=== PATIENT | male | born 1990 | race African-American/Black ===

== ENCOUNTER 2016-09-06 17:23 | Emergency (ER) | payer OTHER ==
[~2016-09-06] VITALS: Ht 182.9 cm; Wt 81.6 kg
[~2016-09-06 17:23] MED LIST: ALBUTEROL0.09 MG/A1 INH; AUGMENTIN 875 M1 TAB PO; CIPRO 500MG TA500 MG PO; FLAG500 PO; HUMALOG 100U100 U/ML; LANTUS SOLOS100 U/ML SC; MEDROL DOSEPAK1 PAC PO; MOTRIN800 MG PO; NOVOLOG100 U/ML SC; PREDNISONE 20MG20 MG PO
--- NOTE | 2016-09-06 17:54 | ED GENERAL ADULT ---
History of Present Illness General Chief Complaint: General Adult Stated Complaint: GENERAL WEAKNESS Source: patient Exam Limitations: no limitations Vital Signs & Intake/Output Vital Signs & Intake/Output ED Intake and Output 09/07 0000 09/06 1199 Intake Total 2000 Output Total Balance 2000 Intake, IV 2000 Patient 180 lb Weight Allergies Coded Allergies: NO KNOWN ALLERGIES (09/06/16) Reconcile Medications Insulin Aspart (Novolog) 100 UNIT/ML VIAL DM (Reported) Insulin Glargine, Recombinan (Lantus Solostar) 100 U/ML KARL 32 UNIT SC QAM DIABETES . Methocarbamol (Robaxin-750) 750 MG TABLET 1 TAB PO TID PRN muscle pain Tramadol HCl 50 MG TABLET 1-2 TAB PO Q6 PRN pain Triage Note: TRIAGE: PT TO ER C/C GENERAL WEAKNESS, BODY ACHES, BILATERAL FLANK PAIN (STATES I'M CONCERNED ABOUT MY KIDNEYS"), LEG PAIN. HAS HAD COLD OR SINUS INFECTION SINCE WEDNESDAY. PMHX IDDM, STATES BLOOD SUGARS HAVE BEEN OK. ACCUCHECK 207 AT TRIAGE. Triage Nurses Notes Reviewed? yes HPI: Patient is a 26-year-old male presents complaining of back pain and bilateral leg pain. Patient concerned that he is having kidney problems due to his diabetes. Back pain and leg pain for approximately 2-3 days. Pain is an aching sensation, soreness. Patient was working out at the gym but denies any particular trauma. Patient has not taken any medication for his symptoms. Patient reports that and Wednesday he had a cold and thought initially that the aching may be secondary to this. Patient has been checking his blood sugars reports that they have not been higher than 250. Patient denies dysuria, frequency, hematuria, nausea, vomiting, diarrhea, abdominal pain (EULALIA BOLANOS) Past History Travel History Traveled to [place] past 21 day No Medical History Any Pertinent Medical History? 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 No (EULALIA BOLANOS) Review of Systems Review of Systems Constitutional: Reports: malaise. Denies: chills, fever. EENTM: Reports: nasal congestion (improved). Respiratory: Denies: cough, short of breath. Cardiovascular: Denies: chest pain. GI: Denies: abdominal pain, nausea, vomiting. Genitourinary: Denies: dysuria, frequency, hematuria. Musculoskeletal: Reports: back pain, muscle pain. Skin: Reports: no symptoms. Neurological/Psychological: Reports: no symptoms. Hematologic/Endocrine: Reports: other (hx type 2 diabetes). Immunologic/Allergic: Reports: no symptoms. (EULALIA BOLANOS) Physical Exam Physical Exam General Appearance: well developed/nourished, alert, awake Head: atraumatic, normal appearance Eyes: Bilateral: normal appearance, PERRL, EOMI. Ears, Nose, Throat: normal pharynx, normal ENT inspection, hearing grossly normal Neck: normal inspection, supple, full range of motion Respiratory: normal breath sounds, chest non-tender, no respiratory distress, lungs clear Cardiovascular: regular rate/rhythm Gastrointestinal: normal bowel sounds, soft, non-tender Back: normal inspection, normal range of motion, no vertebral tenderness, mild right cva tenderness Extremities: normal inspection, normal capillary refill, normal range of motion, no edema Neurologic/Psych: no motor/sensory deficits, awake, alert, oriented x 3, normal gait, normal mood/affect Skin: intact, normal color, warm/dry Lymphatic: no anterior cervical bryson Core Measures ACS in differential dx? No CVA/TIA Diagnosis: No Severe Sepsis Present: No Septic Shock Present: No (EULALIA BOLANOS) Progress Differential Diagnoses I considered the following diagnoses in my evaluation of the patient: rhabdo, uti, pyelo, muscle strain Plan of Care: Orders Procedure Date/time Status URINALYSIS 09/06 1756 Complete COMPREHENSIVE METABOLIC PANEL 09/06 1756 Complete CREATINE PHOSPHOKINASE 09/06 1756 Complete CBC WITHOUT DIFFERENTIAL 09/06 1756 Complete Laboratory Tests 09/06/16 1805: Anion Gap 10, Estimated GFR > 60, BUN/Creatinine Ratio 14.0, Glucose 252 H, Calcium 9.6, Total Bilirubin 0.5, AST 34, ALT 58, Alkaline Phosphatase 91, Creatine Kinase 1014 H, Total Protein 7.4, Albumin 4.3, Globulin 3.1, Albumin/ Globulin Ratio 1.4, CBC w Diff NO MAN DIFF REQ, RBC 4.77, MCV 86.2, MCH 29.6, RDW 14.7 H, MPV 7.6, Gran % 34.7 L, Lymphocytes % 48.7, Monocytes % 13.2 H, Eosinophils % 2.6, Basophils % 0.8, Absolute Granulocytes 2.2, Absolute Lymphocytes 3.1, Absolute Monocytes 0.8 H, Absolute Eosinophils 0.2, Absolute Basophils 0, PUBS MCHC 34.3, Urine Color YEL, Urine Clarity CLEAR, Urine pH 7.0, Ur Specific [place] 1.020, Urine Protein 30 H, Urine Ketones TRACE H, Urine Nitrite NEG, Urine Bilirubin NEG, Urine Urobilinogen 0.2, Ur Leukocyte Esterase NEG, Ur Microscopic SEDIMENT EXAMINED, Urine RBC RARE, Urine WBC RARE, Ur Epithelial Cells FEW, Urine Mucus FEW, Urine Hemoglobin NEG, Urine Glucose >= 1000 H Results of labs discussed with patient. 2L NS bolus administered. Discussed importance of close outpatient follow up and drinking copious amounts of fluids. Patient provided with Rx slip for repeat BMP and CK, and instructed to have repeat labs in 2 days. Appears stable for discharge with close outpatient follow up. Discussed with Dr. Santacruz. (EULALIA BOLANOS) Initial ED EKG: none (EULALIA BOLANOS) Departure Departure Disposition: HOME OR SELF CARE Condition: Stable Clinical Impression Primary Impression: Rhabdomyolysis Qualifiers: Rhabdomyolysis type: non-traumatic Qualified Code: M62.82 - Rhabdomyolysis Referrals: STEFANY NORMAN APRN Additional Instructions: Follow up with your primary doctor this week for further evaluation, call wednesday for appointment. It is very important that you drink a lot of fluids over the next 48 hours. You should have repeat blood work in 2 days, bring the prescription script with you to the outpatient lab to obtain this blood test. Return to the ER if your urine is turning darker, increasing pain, or worsening of symptoms. Departure Forms: Customer Survey General Discharge Information Prescriptions: Current Visit Scripts Tramadol HCl 1-2 TAB PO Q6 PRN pain #15 TAB Methocarbamol (Robaxin-750) 1 TAB PO TID PRN muscle pain #15 TAB (HEILBRUNN PA,EULALIA) PA/HEAD BAGGAGE PORTER Co-Sign Statement Statement: ED Attending supervision documentation- [] I saw and evaluated the patient. I have also reviewed all the pertinent lab results and diagnostic results. I agree with the findings and the plan of care as documented in the PA's/HEAD BAGGAGE PORTER's documentation. [X] I have reviewed the ED Record and agree with the PA's/HEAD BAGGAGE PORTER's documentation. [] Additions or exceptions (if any) to the PAs/HEAD BAGGAGE PORTER's note and plan are summarized below: [] (JUAREZ CHRISTENSEN,MILAN Soria) Critical Care Note Critical Care Note Critical Care Time: non-applicable (EULALIA BOLANOS)
[2016-09-06 18:18] LABS: ABSOLUTE BASOPHIL COUNT 0 /CUMM (0.0-0.2); ABSOLUTE EOSINOPHIL COUNT 0.2 /CUMM (0.0-0.7); ABSOLUTE GRANULOCYTE CT 2.2 /CUMM (1.4-6.5); ABSOLUTE LYMPH COUNT 3.1 /CUMM (1.2-3.4); ABSOLUTE MONOCYTE COUNT 0.8 /CUMM (0.10-0.60); BASOPHIL % 0.8 % (0.0-2.0); EOSINOPHIL % 2.6 % (0-5); GRANULOCYTE % 34.7 % (42.2-75.2); HEMATOCRIT 41.1 % (42-52); MEAN CORPUSCULAR HGB 29.6 PG (27.0-31.0); MEAN CORPUSCULAR HGB CONC 34.3 G/DL (33.0-37.0); MEAN CORPUSCULAR VOLUME 86.2 FL (80.0-94.0); MEAN PLATELET VOLUME 7.6 FL (7.4-10.4); PLATELET COUNT 276 /CUMM (130-400); RBC DISTRIBUTION WIDTH 14.7 % (11.5-14.5); RED BLOOD CELL CT 4.77 /CUMM (4.70-6.10); WHITE BLOOD CELL COUNT 6.4 /CUMM (4.8-10.8)
[2016-09-06] MEDS ORDERED: NOVOLOG100 UNIT/2 SC (18:22)
[2016-09-06] MEDS ORDERED: TRAMADOL HCL50 M1 PO (19:47)
[2016-09-06 20:21] VITALS: BP 126/84
[2016-09-06] MEDS ORDERED: ROBAXIN-750750 M1 PO (20:42)
== END 2016-09-06 20:44 ==
LOC: ERH 17:23
PROVIDERS: Physician Assistant
DX: M62.82 Rhabdomyolysis (principal)
CPT/HCPCS: 81001; 96360; 96361

== ENCOUNTER 2016-10-02 22:21 | Emergency (ER) | payer OTHER ==
[~2016-10-02] VITALS: Ht 182.9 cm; Wt 81.6 kg
[~2016-10-02 22:21] MED LIST changes: +NOVOLOG100 UNIT/2 SC; +ROBAXIN-750750 M1 PO; +TRAMADOL HCL50 M1 PO
[2016-10-02 22:25] VITALS: BP 116/81
--- NOTE | 2016-10-02 22:41 | ED NECK/BACK PAIN COMPLAINT ---
History of Present Illness General Chief Complaint: Low Back Pain/Injury Stated Complaint: " BACK PAIN S/P SHOVELING SNOW" Source: patient Exam Limitations: no limitations Vital Signs & Intake/Output Vital Signs & Intake/Output Vital Signs Date Time Temp Pulse Resp B/P Pulse O2 O2 Flow FiO2 Ox Delivery Rate 10/02 2318 Room Air 10/02 2225 97.0 85 18 116/81 98 Room Air ED Intake and Output 10/03 0000 10/02 1200 Intake Total Output Total Balance Patient 180 lb Weight Allergies Coded Allergies: NO KNOWN ALLERGIES (09/06/16) Reconcile Medications Cyclobenzaprine HCl 10 MG TABLET 1 TAB PO QPM PRN MUSCLE SPASMS Insulin Aspart (Novolog) 100 UNIT/ML VIAL DM (Reported) Insulin Glargine, Recombinan (Lantus Solostar) 100 U/ML KARL 32 UNIT SC QAM DIABETES . Meloxicam (Mobic) 15 MG TABLET 1 TAB PO DAILY PRN PAIN Methocarbamol (Robaxin-750) 750 MG TABLET 1 TAB PO TID PRN muscle pain Tramadol HCl 50 MG TABLET 1-2 TAB PO Q6 PRN pain Triage Note: PT TO TRIAGE WITH C/O LOWER BACK PAIN 04/01 RADIATING TO RLE SINCE THIS MORNING. PT WAS SHOVELING SNOW YESTERDAY. VSS. Triage Nurses Notes Reviewed? yes Onset: Gradual Duration: day(s): (1) Timing: recent history Quality/Severity: moderate Location: lumbar spine, paraspinous muscles Radiation: none Context: shoveling Method of Injury: shoveling Loss of Consciousness: no loss of consciousness HPI: Patient is a 26-year-old male presenting to the emergency department complaining of low back pain after extensive shoveling over the past 24 hours. Denies any falls. Pain is achy throbbing. It is worse when he woke up this time. Denies any urinary frequency urgency or dysuria. Denies taking anything to help with pain. No abdominal pain. Denies any weakness. Recent history of rhabdomyolysis approximately one month ago. He never followed up. Denies any dark-colored urine. (ELAINE MARRERO) Past History Travel History Traveled to [place] past 21 day No Medical History Any Pertinent Medical History? see below for history Neurological: NONE EENT: NONE Cardiovascular: NONE Respiratory: NONE Gastrointestinal: NONE Hepatic: NONE Renal: NONE Musculoskeletal: NONE Psychiatric: NONE Endocrine: IDDM Blood Disorders: NONE Cancer(s): NONE ORDER ENTRY/Reproductive: NONE History of MRSA: No History of VRE: No History of CDIFF: No Surgical History Surgical History: ACL surgery Psychosocial History Who do you live with Grandmother What is your primary language Ukrainian Tobacco Use: Current Daily Use Daily Tobacco Use Amount/Type: => 5 Cigarettes daily Family History Hx Contributory? No (ELAINE MARRERO) Review of Systems Review of Systems Constitutional: Reports: no symptoms. Comments Review of systems: See HPI, All other systems negative. Constitutional, no chills fever or weight loss HEENT: No visual changes no sore throat no congestion Cardiovascular: No chest pain Skin, no jaundice no rashes Respiratory: No dyspnea cough sputum or hemoptysis GI: No nausea no vomiting : No dysuria No hematuria Muscle skeletal: no neck pain, Neurologic: No numbness no confusion Psych: No stress anxiety or depression,. Heme/endocrine: No bruising no bleeding no polyuria or polydipsia Immunology: No splenectomy or history of AIDS (ELAINE MARRERO) Physical Exam Physical Exam General Appearance: well developed/nourished, no apparent distress, alert, awake , comfortable Neck: normal inspection, supple, full range of motion Comments: Well-developed well-nourished person in no acute distress HEENT: Pupils equally round and reactive to light and accommodation. Nose is atraumatic. Neck: Supple, no lymphadenopathy, normal range of motion without pain or tenderness aminal C-spine tenderness. Back: Tender to palpation in the lumbar paraspinal region. No CVA tenderness. Near full range of motion somewhat limited secondary to pain. Negative modified straight leg raise bilaterally. Cardiovascular: Regular rate and rhythms no murmurs rubs or gallops, normal JVP Respiratory: Chest nontender. No respiratory distress.breath sounds clear to auscultation bilaterally Abdomen: Soft, nontender nondistended, no appreciable organomegaly. Normal bowel sounds. No ascites Extremity: No edema Neuro: Alert oriented x3, motor sensory normal, patellar reflexes are 2+ bilaterally. Skin: No appreciable rash on exposed skin, skin is warm and dry. Psych: Mood and affect is normal, memory and judgment is normal. (ELAINE MARRERO) Progress Differential Diagnosis: muscle strain, cauda equina, herniated disc, rhabdomyolysis Comments: 10/02/2016 11:49:10 PM patient informed of lab work results. Blood glucose is 515. IV fluids initiated. Patient also given IV insulin. He reports that he did not take insulin after eating earlier today. Patient will be discharged once blood glucose level was down around 250. CK is less than half of what it was on previous visit. He'll follow with PCP educated on increasing fluids. Avoid strenuous exercise. (JAMES ANNE,ELAINE) Plan of Care: Orders Procedure Date/time Status Add-on Test (ER Only) 10/02 2342 Active ACETONE 10/02 2257 Complete URINALYSIS 10/02 2240 Complete COMPREHENSIVE METABOLIC PANEL 10/02 2240 Complete CREATINE PHOSPHOKINASE 10/02 2240 Complete Laboratory Tests 10/02/162257: Anion Gap 6, Estimated GFR > 60, BUN/Creatinine Ratio 15.8, Glucose 513 *H, Calcium 9.2, Total Bilirubin 0.6, AST 32, ALT 47, Alkaline Phosphatase 82, Creatine Kinase 476 H, Total Protein 6.7, Albumin 3.9, Globulin 2.8, Albumin/ Globulin Ratio 1.4, Acetone Level NEGATIVE 10/02/162249: Urine Color YEL, Urine Clarity CLEAR, Urine pH 6.0, Ur Specific [place] 1.015, Urine Protein NEG, Urine Ketones TRACE H, Urine Nitrite NEG, Urine Bilirubin NEG, Urine Urobilinogen 0.2, Ur Leukocyte Esterase NEG, Ur Microscopic EXAM NOT REQUIRED, Urine Hemoglobin NEG, Urine Glucose >=1000 H Departure Departure Disposition: HOME OR SELF CARE Condition: Stable Clinical Impression Primary Impression: Hyperglycemia Secondary Impressions: Back pain Qualifiers: Back pain location: low back pain Chronicity: unspecified Back pain laterality: bilateral Sciatica presence: without sciatica Qualified Code: M54.5 - Low back pain Referrals: PATIENT HAS NO PRIMARY CARE DR (PCP/Family) Additional Instructions: Follow-up with your primary care physician call to make appointment. Increase fluids. Make sure he take your medications as prescribed. Check blood glucose level daily. Take Flexeril as prescribed to help muscle spasms, take Mobic as prescribed to help with pain and inflammation. Return for worsening symptoms or concerns. No heavy lifting until symptoms resolve. Departure Forms: Customer Survey General Discharge Information Prescriptions: Current Visit Scripts Meloxicam (Mobic) 1 TAB PO DAILY PRN PAIN #15 TAB Cyclobenzaprine HCl 1 TAB PO QPM PRN MUSCLE SPASMS #10 TAB (ELAINE MARRERO) PA/SHOT HOLE DRILLER Co-Sign Statement Statement: ED Attending supervision documentation- [x] I saw and evaluated the patient. I have also reviewed all the pertinent lab results and diagnostic results. I agree with the findings and the plan of care as documented in the PA's/SHOT HOLE DRILLER's documentation. Patient well appearing at discharge. Glucose in the mid 100s. Patient with benign exam. [] I have reviewed the ED Record and agree with the PA's/SHOT HOLE DRILLER's documentation. [] Additions or exceptions (if any) to the PAs/SHOT HOLE DRILLER's note and plan are summarized below: [] (ROLAN CHRISTENSEN,ROSE Maki)
[2016-10-03] MEDS ORDERED: CYCLOBENZAPRINE10 M1 PO (00:13)
[2016-10-03] MEDS ORDERED: MOBIC15 M1 PO (00:13)
== END 2016-10-03 01:06 ==
LOC: ERH 22:21
DX: E10.65 Type 1 diabetes mellitus with hyperglycemia (principal); M54.5 Low back pain
CPT/HCPCS: 81003; 96361; 96374; 96375; J1815; J1885

== ENCOUNTER 2016-10-07 09:44 | Emergency (ER) | payer OTHER ==
[~2016-10-07] VITALS: Ht 182.9 cm; Wt 81.6 kg
[~2016-10-07 09:44] MED LIST changes: +CYCLOBENZAPRINE10 M1 PO; +MOBIC15 M1 PO
--- NOTE | 2016-10-07 09:59 | ED PSYCHIATRIC COMPLAINT ---
History of Present Illness General Chief Complaint: Psychiatric Related Complaint Stated Complaint: ON POLICE PAPER, SI COMMENTS LAST PM Source: patient, police Exam Limitations: no limitations Vital Signs & Intake/Output Vital Signs & Intake/Output Vital Signs Date Time Temp Pulse Resp B/P Pulse O2 O2 Flow FiO2 Ox Delivery Rate 10/08 1151 97.8 92 16 124/69 99 Room Air 10/07 2228 97.6 102 18 117/63 96 Room Air 10/07 2008 96.7 78 20 111/68 97 Room Air ED Intake and Output 10/08 0000 10/07 1200 Intake Total Output Total 200 Balance -200 Output, Urine 200 Patient 180 lb Weight Allergies Coded Allergies: NO KNOWN ALLERGIES (09/06/16) Reconcile Medications Insulin Aspart (Novolog) 100 UNIT/ML VIAL DM (Reported) Insulin Glargine,Hum.rec.anlog (Lantus Solostar) 100 UNIT/ML (3 ML) INSULN.PEN 32 UNIT SC DAILY DIABETES (Reported) Triage Note: PT BIBA FRON HOME. EMS WAS CALLED TO HOUSE THIS AM FOR LOW BLOOD SUGAR LEVEL. ON ARRIVAL PTS SUGAR WAS 46, PT WAS A&O X4 STATING HIS SUGAR IS ALWAYS LOW IN THE AM AND HE JUST NEEDS TO EAT FOOD, PER EMS. EMD GOT A REFUSAL AND LEFT. EMS WAS CALLED SECOND TIME TO THE HOUSE BY POLICE. PER POLICE PAPER "CUT HIS RIGHT ARM, TOLD GIRLFRIEND HE WANTS TO HILL HIMSELF". PT DENIES SI/HI AT THIS TIME. DENIES ALCOHOL OR DRUG USE. BLOOD SUGAR 86 AT THIS TIME. SECUIRTY AT BEDSIDE FOR WANDING. PT REFUISNG TO CHANGE CLOTHES. DR MÉNDEZ TO SPEAK TO PT. Triage Nurses Notes Reviewed? yes Onset: Abrupt Duration: better Timing: single episode today Severity: severe Severity Numbers: 10 HPI: Patient is a 26-year-old male with a past medical history of type 1 diabetes DKA who was brought in by police paper for concerns of wanting to harm himself. It is noted to me by nursing staff police and EMS that patient woke up today and which is he lives with his girlfriend and noted to have low blood sugar in which EMS was called and arrived on scene noted to be blood sugar to be in the 40s patient was alert and oriented and refused services patient did eat a cinnamon roll afterwards however police and EMS were called again to patient's residency for concerns of a verbal argument that him and his girlfriend got into an which police papers indicate that patient told his girlfriend that he wants to kill himself and he cut his right arm. Patient was pleased papered in the emergency room. Patient states that he accidentally cut his right arm while packing his bags to a medical bed railing and states that he only said "I don't want to be here anymore" which he stated did not mean he wanted to harm himself. Patient states that he drinks alcohol on occasion however nothing recently and denies any illicit drug use. Denies any fever chills abdominal pain is otherwise without complaints. Tetanus status is unknown. It is noted on arrival the patient's blood sugar was in the 80s (DONI RIVAS) Past History Travel History Traveled to [place] past 21 day No Medical History Any Pertinent Medical History? see below for history Neurological: NONE EENT: NONE Cardiovascular: NONE Respiratory: NONE Gastrointestinal: NONE Hepatic: NONE Renal: NONE Musculoskeletal: NONE Psychiatric: NONE Endocrine: IDDM, DKA Blood Disorders: NONE Cancer(s): NONE CONDEMNATION ENGINEER/Reproductive: NONE History of MRSA: No History of VRE: No History of CDIFF: No Surgical History Surgical History: ACL surgery Psychosocial History Who do you live with Grandmother What is your primary language Wolof Tobacco Use: Current Daily Use Daily Tobacco Use Amount/Type: => 5 Cigarettes daily ETOH Use: denies use Illicit Drug Use: denies illicit drug use Family History Hx Contributory? No (DONI RIVAS) Review of Systems Review of Systems Constitutional: Reports: no symptoms. EENTM: Reports: no symptoms. Respiratory: Reports: no symptoms. Cardiovascular: Reports: no symptoms. GI: Reports: no symptoms. Genitourinary: Reports: no symptoms. Musculoskeletal: Reports: no symptoms. Skin: Reports: see HPI. Neurological/Psychological: Reports: see HPI. Hematologic/Endocrine: Reports: no symptoms. Immunologic/Allergic: Reports: no symptoms. All Other Systems: Reviewed and Negative (DONI RIVAS) Physical Exam Physical Exam General Appearance: no apparent distress, alert, comfortable Neurological/Psychiatric: no motor/sensory deficits, awake, agitated Appearance/Memory/Insight: denies illness Behavoir/Eye Contact/Speech: cooperative Thoughts/Hallucinations: no apparent hallucination Comments: HEENT: Normal EENT exam, extraocular motion intact, no nystagmus. Pupils equally round and reactive to light and accommodation. Nose is atraumatic. External auditory canal and Tympanic membranes clear. Pharynx normal. No swelling or edema. Neck: Supple, no lymphadenopathy, normal range of motion without pain or tenderness Back: Nontender, no CVA tenderness. Cardiovascular: Regular rate and rhythms no murmurs rubs or gallops, normal JVP Respiratory: Chest nontender. No respiratory distress.breath sounds clear to auscultation bilaterally Abdomen: Soft, nontender nondistended, no appreciable organomegaly. Normal bowel sounds. No ascites Extremity: No edema, no calf tenderness to palpation, normal and equal pulses. Right forearm noted superficial excoriation along the medial aspect from his wrist to his elbow no active bleeding wound is well-healing Neuro: Alert oriented x3, motor sensory normal, cranial nerves II through XII grossly intact. Psych: Mood and affect is normal, memory and judgment is normal. SAD PERSONS SAD PERSONS Response Value Male Sex? yes 1 Age <19 or >45 years? yes 1 Depression/Hopelessness? yes 2 Excessive Ethanol/Drug Use? yes 1 Single//? yes 1 Organized/Serious Attempt yes 2 Social Support? has support 0 Total 8 SAD PERSONS Done? yes (DONI RIVAS) Progress Differential Diagnosis: drug intoxication, drug overdose, drug withdrawal, electrolyte abnormality, encephalitis, hypoglycemia, hypothyroidism, IC hem/mass /tumor, meningitis Hand-Off Endorsed To: LUCIE CHRISTENSEN,ADRIANA Endorsed Time: 2016 Pending: consult Comments: 10/07/2016 8:15:33 PM please discard this above documentation as this was recorded on an incorrect patient (DONI RIVAS) Plan of Care: Orders Procedure Date/time Status Regular Diet 10/07 L Active MIXED VENOUS BLOOD GAS (GEN) 10/07 958 Active Continuous Observation Monitor 10/07 958 Active URINE DRUG SCREEN FOR ER ONLY 10/07 958 Complete LACTIC ACID 10/07 958 Complete ETHANOL 10/07 958 Complete COMPREHENSIVE METABOLIC PANEL 10/07 958 Complete CBC WITHOUT DIFFERENTIAL 10/07 958 Complete ACETONE 10/07 958 Complete ED CRISIS PSYCH CONSULT 10/07 958 Active Laboratory Tests 10/07/16 1259: Lactic Acid Cancelled 10/07/16 1012: Urine Opiates Screen 201.00, Methadone Screen 46, Barbiturate Screen < 60, Ur Phencyclidine Scrn 12.40, Amphetamines Screen < 100, U Benzodiazepines Scrn < 85 , Urine Cocaine Screen < 50, Urine Cannabis Screen 74.50 H 10/07/16 1012: Anion Gap 12, Estimated GFR > 60, BUN/Creatinine Ratio 13.6, Glucose 78, Lactic Acid 1.2, Calcium 9.6, Total Bilirubin 0.8, AST 39, ALT 44, Alkaline Phosphatase 75, Total Protein 7.8, Albumin 4.7, Globulin 3.1, Albumin/Globulin Ratio 1.5, CBC w Diff NO MAN DIFF REQ, RBC 5.16, MCV 87.2, MCH 29.5, RDW 13.8, MPV 7.5, Gran % 62.0, Lymphocytes % 26.7, Monocytes % 8.1, Eosinophils % 2.9, Basophils % 0.3, Absolute Granulocytes 5.0, Absolute Lymphocytes 2.1, Absolute Monocytes 0.7 H, Absolute Eosinophils 0.2, Absolute Basophils 0, PUBS MCHC 33.8, Serum Alcohol < 10.0, Acetone Level NEGATIVE Patient noted to be agitated however I did discuss with patient that he is please papered and will be evaluated for his concerning statements of harming himself and the physical exam findings of cutting his right arm. Blood work will be obtained to rule out DKA Patient denies any drug intoxication and does not appear to be intoxicated at this time. 10/07/2016 11:27:43 AM patient has no concerns at this time of DKA I discussed patient with crisis management who will evaluate patient 10/07/2016 2:18:28 PM after crisis evaluated patient that there was concerns of patient trying to overdose on NSAIDs by the girlfriend and which crisis states that patient will be involuntarily admitted however no beds are available and Inpatient Psychiatry and patient is a bed search. When described disposition and plan with patient he became upset and stated that "you can't keep me here" I discussed with patient that he would be admitted and which currently patient is hostile and there is significant concerns of possible hard restraints for patient's behavior however currently patient is in room 9 and cooperating. This event was in order #7 and currently is cleared Crisis management team discussed with the disposition plan in which patient will be admitted for bedsores as he is a harm to himself and others. This is a involuntary admission patient was made aware of this Patient's blood sugar had dropped in which she was given a meal in which the blood sugar had improved Discussed disposition and plan with FOR HANDOFF (DONI RIVAS) Comments: Seen by psychiatry for competency to understand treatment choices. No longer suicidal. She is to follow up at [facility] and Dr. Bach in [place] for pain management. (ERROL MÉNDEZ MD) Hand-Off Endorsed To: ROSE SUTTON MD Endorsed Time: 2308 Pending: consult (CRISIS DISPOSITION) (ADRIANA FAULKNER MD) Hand-Off Endorsed To: ANAHY GARG MD Endorsed Time: 0700 Pending: consult (ROSE SUTTON MD) Comments: 10/08/2016 1:50:51 PM patient signed out to me by Dr. Sutton at shift data recovery planner. Patient has been evaluated by crisis and felt to be stable for outpatient management. (ANAHY GARG MD) Departure Departure Condition: Critical (DONI RIVAS) Departure Time of Disposition: 1509 Departure Forms: General Discharge Information PA/REPTILE KEEPER Co-Sign Statement Statement: ED Attending supervision documentation- x I saw and evaluated the patient. I have also reviewed all the pertinent lab results and diagnostic results. I agree with the findings and the plan of care as documented in the PA's/REPTILE KEEPER's documentation. [] I have reviewed the ED Record and agree with the PA's/REPTILE KEEPER's documentation. [] Additions or exceptions (if any) to the PAs/REPTILE KEEPER's note and plan are summarized below: [] (ERROL MÉNDEZ MD) PA/REPTILE KEEPER Co-Sign Statement Statement: ED Attending supervision documentation- [X] I saw and evaluated the patient. I have also reviewed all the pertinent lab results and diagnostic results. I agree with the findings and the plan of care as documented in the PA's/REPTILE KEEPER's documentation. [X] I have reviewed the ED Record and agree with the PA's/REPTILE KEEPER's documentation. [] Additions or exceptions (if any) to the PAs/REPTILE KEEPER's note and plan are summarized below: [] (ADRIANA FAULKNER MD) Departure Disposition: HOME OR SELF CARE Clinical Impression Primary Impression: Homicidal ideation Secondary Impressions: Adjustment disorder Qualifiers: Adjustment disorder type: unspecified type Qualified Code: F43.20 - Adjustment disorder, unspecified Marijuana smoker Suicide ideation Referrals: [facility] PATIENT HAS NO PRIMARY CARE DR (PCP/Family) Additional Instructions: Follow-up with your appointment with the [facility] psychiatry Department on October 16 at 8:30 AM. Contact the [facility] and arrange for a general medical evaluation as soon as possible. Return if any concerns or sudden worsening. (BRITANY CHRISTENSEN,ANAHY Sosa) Critical Care Note Critical Care Note Critical Care Time: 30-74 min (DONI RIVAS)
[2016-10-07 10:23] LABS: ABSOLUTE BASOPHIL COUNT 0 /CUMM (0.0-0.2); ABSOLUTE EOSINOPHIL COUNT 0.2 /CUMM (0.0-0.7); ABSOLUTE LYMPH COUNT 2.1 /CUMM (1.2-3.4); ABSOLUTE MONOCYTE COUNT 0.7 /CUMM (0.10-0.60); BASOPHIL % 0.3 % (0.0-2.0); EOSINOPHIL % 2.9 % (0-5); MEAN CORPUSCULAR HGB 29.5 PG (27.0-31.0); MEAN CORPUSCULAR HGB CONC 33.8 G/DL (33.0-37.0); MEAN CORPUSCULAR VOLUME 87.2 FL (80.0-94.0); MEAN PLATELET VOLUME 7.5 FL (7.4-10.4); PLATELET COUNT 325 /CUMM (130-400); RBC DISTRIBUTION WIDTH 13.8 % (11.5-14.5); RED BLOOD CELL CT 5.16 /CUMM (4.70-6.10); WHITE BLOOD CELL COUNT 8.1 /CUMM (4.8-10.8)
[2016-10-07] MEDS ORDERED: LANTUS SOL100 UNIT/1 SC (10:54)
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
[2016-10-08 11:51] VITALS: BP 124/69
--- NOTE | 2016-10-08 12:16 | ED PSYCHIATRIST/APRN CONSULT ---
Psychiatrist/IMPLEMENTATION MANAGER ED Consult Assessment and Plan: Patient seen at 11:03 a.m. Denies suicide attempt, suicide note, threatening girlfriend, owning or having access to guns. Agrees to OPS. We will release today to stay with family with OPS follow up. cattle care worker notified girlfriend of release under "duty to warn." Full note to follow.
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
== END 2016-10-08 14:05 ==
LOC: ERH 09:44
PROVIDERS: Physician Assistant
DX: R45.851 Suicidal ideations (principal); R45.850 Homicidal ideations; F43.20 Adjustment disorder, unspecified; F12.10 Cannabis abuse, uncomplicated
CPT/HCPCS: 80307; 90471; 90714; G0463; G0480

== ENCOUNTER 2017-01-01 10:09 | Emergency (ER) | payer OTHER ==
[~2017-01-01] VITALS: Ht 185.4 cm; Wt 81.6 kg
[~2017-01-01 10:09] MED LIST changes: +LANTUS SOL100 UNIT/1 SC
[2017-01-01 10:18] VITALS: BP 137/83
[2017-01-01] MEDS ORDERED: PERCOCET 5-3251 EACH PO (10:54)
[2017-01-01] MEDS ORDERED: AUGMENTIN 875-1 EACH PO (10:54)
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
[2017-02-11] MEDS ORDERED: NORCO 5-325 TA1 EACH PO (14:47)
[2017-02-11] MEDS ORDERED: IBUPROFEN800 M1 PO (14:47)
[2017-02-11] MEDS ORDERED: TYLENOL WITH C1 EACH PO (18:11)
== END 2017-01-01 11:07 ==
LOC: ERH 10:09
DX: S01.85XA Open bite of other part of head, initial encounter (principal); Y04.1XXA Assault by human bite, initial encounter; Y93.9 Activity, unspecified; Y92.9 Unspecified place or not applicable